=== PATIENT | female | born 1985 | race African-American/Black ===

== ENCOUNTER 2024-07-18 13:59 | Emergency (ER) | payer MEDICAID, OTHER ==
[~2024-07-18] VITALS: Ht 170.2 cm; Wt 105.0 kg
[2024-07-18 14:22] VITALS: O2SAT 99
[2024-07-18] MEDS: DEXAMETHASONE 10 MG/ML VIAL IM ONE (20:35)
[2024-07-19 00:09] VITALS: BP 135/76; PULSE 83; RESP 16; TEMP 36.83628; O2SAT 100
== END 2024-07-19 00:12 | disposition home or self-care (01) ==
LOC: ER 14:55
DX: J02.9 Acute pharyngitis, unspecified (principal); J45.909 Unspecified asthma, uncomplicated; Z88.0 Allergy status to penicillin
CPT/HCPCS: 87430; 87070; 71045; 96372; 99284; J1100; Z7610